=== PATIENT | male | born 1960 | race Caucasian/White ===

== ENCOUNTER 2017-02-23 12:04 | Emergency (ER) | payer SELFPAY ==
--- NOTE | 2017-02-23 12:40 | RAD ---
Left foot radiographs History: Lateral foot pain for 2 days. Comparison: None. Findings: AP, lateral, and oblique views of the left foot. No acute fracture or dislocation is identified. Achilles tendon and small plantar calcaneal enthesophytes are present. No significant osteoarthritic change is seen involving the foot. Impression: No acute osseous abnormality identified.
--- NOTE | 2017-02-23 12:44 | PHYS DOC ---
Adult General Chief Complaint Chief Complaint: FOOT INJURY PAIN HPI HPI 57-year-old male presenting to the emergency department for evaluation of left foot pain that has been going on since yesterday. He says that it is a sharp shooting pain on the top of his foot and can feel like needles poking him. He says that it hurts worse when he steps on it but has some pain at rest as well. He has had no fevers and there is no significant swelling redness or warmth to his foot. He denies diabetes or immune system issues or drinking alcohol. He is in no obvious distress with normal vital signs. Review of Systems Review of Systems Constitutional: Denies fever or chills [] GI: Denies abdominal pain, nausea, vomiting, bloody stools or diarrhea Musculoskeletal: Positive left foot pain Integument: Denies rash or skin lesions [] Neurologic: Denies headache, focal weakness or sensory changes [] Physical Exam Physical Exam Constitutional: Well developed, well nourished, no acute distress, non-toxic appearance. [] Cardiovascular:Heart rate regular rhythm, no murmur [] Lungs & Thorax: Bilateral breath sounds clear to auscultation [] Skin: Warm, dry, no erythema, no rash. [] Extremities: Left foot with no significant pain on his talus approximately. He has no pain on his malleoli. There is possibly slight swelling to where he is hurting however there is no warmth redness induration. Neurologic: Alert and oriented X 3, normal motor function, normal sensory function, no focal deficits noted. [] EKG EKG [] Radiology/Procedures Radiology/Procedures Left foot radiographs History: Lateral foot pain for 2 days. Comparison: None. Findings: AP, lateral, and oblique views of the left foot. No acute fracture or dislocation is identified. Achilles tendon and small plantar calcaneal enthesophytes are present. No significant osteoarthritic change is seen involving the foot. Impression: No acute osseous abnormality identified. DICTATED AND SIGNED BY: AMANDO AGUILERA MD DATE: 02/23/17 1186 Course & Med Decision Making Course & Med Decision Making X-ray appears normal. His physical exam is very unremarkable and I do not see any signs of cellulitis or an infected joint. My suspicion is that he has a neuropathy. I told him to continue taking NSAIDs and then I will prescribe [place] for breakthrough pain and have him follow with her primary care provider next week and come back to the ER sooner with any worsening pain weakness or other general concerns. Dragon Disclaimer Dragon Disclaimer This chart was dictated in whole or in part using Voice Recognition software in a busy, high-work load, and often noisy Emergency Department environment. It may contain unintended and wholly unrecognized errors or omissions. Departure Departure: Impression: Primary Impression: Foot pain, left Disposition: HOME, SELF-CARE Condition: GOOD Referrals: PCP,ADALID (PCP) RUSLAN ACHARYA MD Patient Instructions: Pain, Neuropathic Additional Instructions: TAKE 400MG OF IBUPROFEN EVERY 6 HOURS AND THE NORCO FOR BREAKTHROUGH PAIN. FOLLOW WITH A PRIMARY CARE PROVIDER NEXT WEEK TO ENSURE IMPROVEMENT AND COME BACK TO THE ED SOONER WITH WORSENING PAIN, REDNESS, SWELLING OR OTHER GENERAL CONCERNS. THANK YOU! Scripts Hydrocodone Bit/Acetaminophen ([place] 5-325 Tablet)1 Each Tablet1 Tab PO PRN Q6HRS PRN PAIN #20 TAB Ref 0 Prov:MARBIN COYLE DO 02/23/17 MARBIN COYLE DO Feb 23, 2017 12:44
[2017-02-23] MEDS ORDERED: HYDR-971 PO (12:49)
[2017-02-23 13:01] VITALS: BP 171/106
== END 2017-02-23 13:18 | disposition home or self-care (01) ==
LOC: ER 12:04
DX: M79.672 Pain in left foot (principal)
CPT/HCPCS: 73630; 99284

== ENCOUNTER 2018-02-23 08:42 | Emergency (ER) | payer SELFPAY ==
[~2018-02-23 08:42] MED LIST: HYDR-971 PO
--- NOTE | 2018-02-23 09:42 | PHYS DOC ---
Past History Past Medical History: No Pertinent History Past Surgical History: No Surgical History Alcohol Use: None Drug Use: None Adult General Chief Complaint Chief Complaint: CPR/FULL ARREST HPI HPI Patient is a 58 year old M who presents in cardiac arrest. Cody was working at [employer] when he became unresponsive. EMS was called. On initial evaluation he was found to be unresponsive not breathing with no pulse. His initial rhythm was ventricular fibrillation. During his prehospital course he received 4 defibrillations and 5 doses of epinephrine. Upon arrival in the emergency room he was unresponsive. His initial rhythm was asystole. His states that over the past days to weeks he has been complaining of intermittent central chest pain. He had no known medical history. He did not go to the doctor very often according to his . Review of Systems Review of Systems Unable to obtain due to current medical condition Family History Family History Unable to obtain Current Medications Current Medications Unable to obtain Allergies Allergies Allergies Coded Allergies Type Severity Reaction Last Updated Verified No Known Drug Allergies 02/23/17 No Physical Exam Physical Exam Constitutional: Unresponsive Neck: Normal range of motion, no tenderness, supple Cardiovascular: Asystole Lungs & Thorax: No respiratory effort was noted Abdomen: soft, no masses, no pulsatile masses. [] Skin: Warm, dry, no erythema, no rash. [] Neurologic: Unresponsive, unable to assess further neurologic status Psychologic: Unable to assess Current Patient Data Vital Signs Asystole EKG EKG [] Radiology/Procedures Radiology/Procedures [] Course & Med Decision Making Course & Med Decision Making Pertinent Labs and Imaging studies reviewed. (See chart for details) Cody's initial rhythm was asystole. At that time compressions were resumed. A 20-gauge IV was obtained in addition to an IO placed in the prehospitalization phase. Additional epinephrine was given at 3 minute intervals. He is also given amiodarone 300 mg followed by a second dose of 150 mg 5 minutes later. At his second rhythm check V. fib was noted. He was defibrillated. Following defibrillation his rhythm remained in asystole. High- quality CPR was maintained throughout the [facility]. Dragon Disclaimer Dragon Disclaimer This electronic medical record was generated, in whole or in part, using a voice recognition dictation system. Departure Departure: Impression: Primary Impression: Cardiopulmonary arrest Disposition: 20 Condition: Referrals: PCP,ADALID (PCP) RUSLAN COHEN MD Feb 23, 2018 09:42
== END 2018-02-23 11:33 | disposition expired ==
LOC: ER 08:42
DX: I46.9 Cardiac arrest, cause unspecified (principal)
CPT/HCPCS: 92950; 99285-25